=== PATIENT | female | born 1955 | race Caucasian/White ===

== ENCOUNTER 2018-07-05 13:06 | Emergency (ER) | payer OTHER ==
[~2018-07-05] VITALS: Ht 167.6 cm; Wt 75.0 kg
[2018-07-05 13:17] VITALS: Ht 167.6 cm; Wt 75.0 kg
[2018-07-05] MEDS ORDERED: LISINOPRIL2.5 MG (13:18)
[2018-07-05] MEDS ORDERED: TOPROL XL50 MG (13:18)
[2018-07-05] MEDS ORDERED: CARBATROL100 MG (13:18)
[2018-07-05] MEDS ORDERED: ROBAXIN500 MG PO (16:46)
[2018-07-05] MEDS ORDERED: TORADOL10 MG PO (16:46)
[2018-07-05 17:30] VITALS: BP 141/86
== END 2018-07-05 17:30 | disposition home or self-care (01) ==
LOC: D.ER 13:06
DX: S43.421A Sprain of right rotator cuff capsule, initial encounter (principal); W10.9XXA Fall (on) (from) unspecified stairs and steps, initial encounter; Y93.89 Activity, other specified; Y92.019 Unspecified place in single-family (private) house as the place of occurrence of the external cause; I10 Essential (primary) hypertension